=== PATIENT | female | born 1995 | race Caucasian/White ===

== ENCOUNTER → 2019-06-05 18:16 | Outpatient (ROUT) | payer OTHER, MEDICAID, SELFPAY ==
[2019-06-05 18:27] LABS: UR Morphine/Opiate cutoff 300 Negative (Negative); Ur Creatinine Normal (Normal); Ur Specific Gravity Normal (Normal); Urine Amphetamines Negative (Negative); Urine Barbiturates Negative (Negative); Urine Benzodiazepines Negative (Negative); Urine Cocaine Negative (Negative); Urine MDMA Negative (Negative); Urine Methadone Negative (Negative); Urine Methamphetamines Negative (Negative); Urine Oxycodone Negative (Negative); Urine Phencyclidine Negative (Negative); Urine Tetrahydrocannabinol Negative (Negative); Urine Tricyclic Antidepressant Negative (Negative); Urine pH Normal (Normal)
== END ==
PROVIDERS: Family Provider Family Medicine; PCP Family Medicine; Visit Provider Nurse Practitioner Obstetrics & Gynecology
DX: O09.30 Supervision of pregnancy with insufficient antenatal care, unspecified trimester (principal)
CPT/HCPCS: 80305; 87070; 87077; 87205

== ENCOUNTER → 2019-06-14 13:09 | Outpatient (ROUT) | payer OTHER, MEDICAID, SELFPAY ==
[2019-06-14 13:21] LABS: Ur Creatinine Normal (Normal); Ur Specific Gravity Normal (Normal); Urine pH Normal (Normal)
[2019-06-14 13:22] LABS: UR Morphine/Opiate cutoff 300 Negative (Negative); Urine Amphetamines Negative (Negative); Urine Barbiturates Negative (Negative); Urine Benzodiazepines Negative (Negative); Urine Cocaine Negative (Negative); Urine MDMA Negative (Negative); Urine Methadone Negative (Negative); Urine Methamphetamines Negative (Negative); Urine Oxycodone Negative (Negative); Urine Phencyclidine Negative (Negative); Urine Tetrahydrocannabinol Negative (Negative); Urine Tricyclic Antidepressant Negative (Negative)
[2019-06-14 15:56] LABS: Creatinine Urine Random 119.8 mg/dL; Protein (Total) Urine Random 21 mg/dL (0-12); Protein Creatinine Ratio Urine 0.17 GRAM/24H
== END ==
PROVIDERS: Family Provider Family Medicine; PCP Family Medicine; Visit Provider Nurse Practitioner Obstetrics & Gynecology
DX: O09.33 Supervision of pregnancy with insufficient antenatal care, third trimester (principal); O12.13 Gestational proteinuria, third trimester; Z3A.39 39 weeks gestation of pregnancy
CPT/HCPCS: 80305; 82570; 84156

== ENCOUNTER 2019-06-26 08:29 | Inpatient (IN) | payer OTHER, MEDICAID, SELFPAY ==
--- NOTE | 2019-06-26 08:42 | P.HPOB_ITS ---
OB HPI Date/Time Date of admission: 06/26/19 Date Patient Seen: 06/26/19 Time Patient Seen: 08:40 History of Present Condition Chief complaint: OBS : 1 Para: 0 Estimated Date of Delivery: 06/12/19 Estimated Gestational Age (weeks): 42 Narrative: Phyllis Lao is a 24 year old female with insufficient c are. Indications Indication for induction OB: post dates History of Present care: number of visits (5) Dating criteria: based on LMP only Ultrasounds: normal mid trimester US Obstetrical complications: none Medical complications: none Preadmission Labs Blood type: B (+) positive -: Antibody screen: negative, Cystic fibrosis screen: unknown, GBS status: negative, HBsAG: negative, HIV: negative and RPR/VDLR: negative -: Chlamydia screen: detected (treated 06/07/19) and Gonorrhea screen: not detected -: Rubella: immune and Varicella: unknown HCT: 34.2 HCAB: negative Narrative: No GDM screening done. Full PN panel @ 39 wks significant for + chlamydia which was treated. Post dates testing @ 41 wks KEITH-11.39cm, vertex. Evaluation Evaluation Baseline heart rate: 135 Variability: Moderate (11-25) monitor accelerations: Present monitor decelerations: Absent Contraction Frequency (minutes): 0 Uterine Contraction Intensity: Mild Category of Tracing: I Cervical dilation (cm): 4 Cervical effacement (%): 70 station: -3 Comments: Newton-6 PFSH Family History (Updated 06/26/19 @ 09:46 by Юлия Cherry CNM) Mother Cancer Social History (Updated 06/26/19 @ 09:47 by Юлия Cherry CNM) marital status: unmarried,single details: Lives with aunt lives independently: Yes caregiver/support person: No housing: house education level: high school occupational status: unemployed Smoking Status: Current every day smoker quit status: not considering quitting second hand exposure: Yes alcohol intake: former substance use type: does not use Meds Home Medications and Allergies Home Medications Medication Instructions Recorded Confirmed Type albuterol sulfate [Proventil HFA] 0 INH 1 #1 inh 01/05/13 Rx CLINDAMYCIN PHOS/BENZOYL PEROX 1 gel TOPICAL BID #1 tube 03/06/13 Rx (Benzaclin Gel) Allergies Allergy/AdvReac Type Severity Reaction Status Date / Time morphine Allergy Mild Verified 06/26/19 08:45 Penicillins Allergy Mild Hives Verified 06/26/19 08:45 Review of Systems Review of Systems ROS Unobtainable: All systems reviewed & are unremarkable except as noted in HPI and below Exam Vital Signs (past 8 hours): BP 116/76, HR104, T36C Temporal Uterus Location (Fundal Height): 39 Presentation: vertex Objective Labs Labs: CBC, T&S, HgbA1c and random glucose pending Assessment and Plan Assessment and Plan Assessment and Plan narrative: Post dates primipara IOL for post dates Insufficient care No indication for GBS prophylaxis GDM unknown, but unlikely Cat I FHR P: Admit, routine orders w/ misoprostil for cervical ripening to Newton >8, then pitocin. Labor support PRN. Epidural when requested. Reassess in 4-6 hours or sooner, PRN. Time Spent with Patient Total time spent with greater than 50% in coordination of care (as documented) at patient's floor/unit and/or counseling patient:: 15-24 minutes
[2019-06-26] MEDS: miSOPROStoL 25 MCG TABLET 50 MCG PO ×2 (09:12→12:35)
[2019-06-26 10:57] LABS: Ur Creatinine Normal (Normal); Ur Specific Gravity Normal (Normal)
[2019-06-26 10:58] LABS: UR Morphine/Opiate cutoff 300 Negative (Negative); Urine Amphetamines Negative (Negative); Urine Barbiturates Negative (Negative); Urine Benzodiazepines Negative (Negative); Urine Cocaine Negative (Negative); Urine MDMA Negative (Negative); Urine Methadone Negative (Negative); Urine Methamphetamines Negative (Negative); Urine Oxycodone Negative (Negative); Urine Phencyclidine Negative (Negative); Urine Tetrahydrocannabinol Negative (Negative); Urine Tricyclic Antidepressant Negative (Negative); Urine pH Normal (Normal)
[2019-06-26] MEDS: NICOTINE 7 MG PATCH TOP (11:23)
[2019-06-26 14:51] VITALS: BP 116/76
--- NOTE | 2019-06-26 15:39 | PM.OBPNLAB ---
Date/Time Date Patient Seen: 06/26/19 Time Patient Seen: 15:35 Pain Control Pain control: tolerating well Comments: denies pain VS: BP125/77, HR93, T35.9C Temporal Pelvic Exam Dilation (cm): 4 Effacement (%): 70 station: -3 Contractions Contractions on admission: irregular Monitor mode: External Pitocin rate (mU/min): 0 Contraction pattern: Irregular Contraction intensity: Mild Status status: Category l Heart Rate Baseline: 140 Monitor Accelerations: Present Monitor Decelerations: Absent Monitor Variability: Moderate Assessment and Plan Assessment: induction ongoing and other (Not in active labor) Comments: Minimal response w/ misoprostil x2 doses. Given 4cm dilation, recommend beginning pitocin for labor induction. Pt plans to shower, then consents to pitocin. Reassess in 4-6 hours or sooner, PRN. Labor support PRN. Epidural when requested.
[2019-06-26] MEDS: LACTATED RINGERS 1,000 ML 125 ML IV (16:45)
[2019-06-26 16:46] LABS: Add Manual Diff / Slide Review NO; Basophils Absolute Auto 100 /uL (0-100); Basophils Percent Auto 0.7 % (0-2); Eosinophils Absolute Auto 300 /uL (0-450); Eosinophils Percent Auto 2.1 % (2-4); Hematocrit 35.2 % (36-46); Hemoglobin 12.3 g/dL (12.0-16.0); Lymphocytes Absolute Auto 2900 /uL (1100-4500); Lymphocytes Percent Auto 18.2 % (25-40); Mean Corpuscular HGB Conc 34.9 % (30-36); Mean Corpuscular Hemoglobin 29.6 PG (26-34); Mean Corpuscular Volume 84.8 fL (80-100); Monocytes Absolute Auto 1500 /uL (0-900); Monocytes Percent Auto 9.5 % (3-14); Neutrophils Absolute Auto 11000 /uL (1500-7000); Neutrophils Percent Auto 69.5 % (50-75); Platelet Count 329 X10^3/uL (150-400); Red Blood Cell Count 4.15 X10^6/uL (4.0-5.2); Red Cell Distribution Width 13.8 % (11.6-14.8); White Blood Cell Count 15.9 X10^3/uL (4.5-11.0)
[2019-06-26 16:57] LABS: Hemoglobin A1C% w Est Avg Glu 5.2 % (4.0-6.0)
[2019-06-26] MEDS: OXYTOCIN PREMIX 30 UNIT/500 ML PLAST..BAG IV (17:03)
[2019-06-26 17:13] LABS: Glucose 105 mg/dL (70-100)
--- NOTE | 2019-06-26 20:34 | PM.OBPNLAB ---
Date/Time Date Patient Seen: 06/26/19 Time Patient Seen: 08:30 Pain Control Pain control: tolerating well Comments: VS: BP 136/81, HR94, T36.3C Temporal Pelvic Exam Dilation (cm): 4 Effacement (%): 70 station: -3 Comments: CE deferred as patient is not yet breathing through contractions Contractions Date/Time contractions began: 06/26/19 @ 1745 mild ctx started Pt now aware of tightening during contractions, no discomfort Monitor mode: External Pitocin rate (mU/min): 9 Contraction frequency (min): 3 Contraction duration (min): 50 Contraction pattern: Regular Contraction intensity: Mild Status status: Category l Heart Rate Baseline: 135 Monitor Accelerations: Present Monitor Decelerations: Absent Monitor Variability: Moderate Assessment and Plan Assessment: induction ongoing Plan: continuous present management Comments: Continue pitocin titration to adequate contraction pattern and intensity. Encouraged patient to get some sleep while ctx are mild. Labor support, PRN. Epidural when requested. Reassess in 4-6 hours or sooner, PRN.
[2019-06-27] MEDS: LACTATED RINGERS 1,000 ML 125 ML IV ×2 (00:05→13:29)
--- NOTE | 2019-06-27 01:54 | PM.OBPNLAB ---
Date/Time Date Patient Seen: 06/27/19 Time Patient Seen: 01:45 Pain Control Pain control: tolerating well Comments: Patient sleeping VS: BP133/82, HR85, T36.4 Pelvic Exam Dilation (cm): 4 Effacement (%): 70 station: -3 Comments: Exam deferred as patient is sleeping Contractions Contractions on admission: regular Monitor mode: External Pitocin rate (mU/min): 22 Contraction frequency (min): 3 Contraction duration (min): 50 Contraction pattern: Regular Contraction intensity: Mild Status status: Category l Heart Rate Baseline: 135 Monitor Accelerations: Present Monitor Decelerations: Absent Monitor Variability: Moderate Assessment and Plan Assessment: induction ongoing Comments: Stop pitocin and repeat misoprostil x1 dose. Will restart pitocin in am. Reassess in 5 hours or sooner, PRN
[2019-06-27] MEDS: miSOPROStoL 25 MCG TABLET 50 MCG PO (02:51)
--- NOTE | 2019-06-27 07:56 | PM.OBPNLAB ---
Date/Time Date Patient Seen: 06/27/19 Time Patient Seen: 07:45 Pain Control Pain control: tolerating well Comments: Patient slept well overnight and remains comfortable w/ irregular, mild contractions VS: BP109/69, HR82, T35.7C Temporal Pelvic Exam Dilation (cm): 4 Effacement (%): 70 station: -3 Comments: CE deferred Contractions Contractions on admission: irregular Monitor mode: External Pitocin rate (mU/min): 4 Contraction duration (min): 50 Contraction pattern: Regular Contraction intensity: Mild Status status: Category l Heart Rate Baseline: 135 Monitor Accelerations: Present Monitor Decelerations: Absent Monitor Variability: Moderate Assessment and Plan Assessment: induction ongoing Plan: begin patient augmentation Comments: Pitocin restarted at 0730. Continue pitocin titration to adequate contraction pattern. Labor support PRN. Epidural when requested. Reassess in 4-6 hours or sooner, PRN.
[2019-06-27] MEDS: NICOTINE 7 MG PATCH TOP (11:36)
--- NOTE | 2019-06-27 13:11 | PM.OBPNLAB ---
Date/Time Date Patient Seen: 06/27/19 Time Patient Seen: 12:20 Pain Control Pain control: tolerating well Pelvic Exam Dilation (cm): 4 Effacement (%): 70 station: -2 Amniotic membrane status: Ruptured Comments: AROM, copious clear fluid w/ near immediate increase in contraction intensity reported by patient Contractions Monitor mode: External Pitocin rate (mU/min): 18 Contraction frequency (min): 3 Contraction duration (min): 50 Contraction pattern: Regular Contraction intensity: Mild Status status: Category l Heart Rate Baseline: 140 Monitor Accelerations: Absent Monitor Decelerations: Absent Monitor Variability: Moderate Assessment and Plan Assessment: induction ongoing Plan: continuous present management Comments: Continue pitocin titration to adequate contraction pattern. Labor support PRN. Epidural when requested. Reassess in 4 hours or sooner, PRN.
--- NOTE | 2019-06-27 14:55 | P.PNOB_ITS ---
Date/Time Date Patient Seen: 06/27/19 Time Patient Seen: 14:50 Pain Control Pain control: tolerating well and epidural Comments: Comfortable after epidural placement VS: BP123/57, HR84, T36.7C Temporal Pt has had 2 elevated BPs Systolic >140 on 2 separate occasions, >4 hours apart. Preeclampsia labs ordered and veterinarian laboratory animal care had 2 failed attempts. CNM canceled order and will only send random urine for Pr:Cr atthis time Pelvic Exam Dilation (cm): 6 Effacement (%): 80 station: -2 Amniotic membrane status: Leaking Comments: clear Contractions Contractions on admission: regular Monitor mode: External Pitocin rate (mU/min): 18 Contraction frequency (min): 3 Contraction duration (min): 50 Contraction pattern: Regular Contraction intensity: Mild Status status: Category l Heart Rate Baseline: 145 Monitor Accelerations: Present Monitor Decelerations: Absent Monitor Variability: Moderate Assessment and Plan Assessment: active labor and induction ongoing Plan: continuous present management Comments: Notified OB back-up/ of pt status w/ ongoing IOL. If Pr:Cr <0.3, will hold repeat labs draw attempts. Encourage frequent position changes. Continue pitocin titration to adequate contraction pattern. Reassess in 4 hours or sooner, PRN.
[2019-06-27] MEDS: CALCIUM CARBONATE 500 MG TAB 1000 MG PO (16:02)
[2019-06-27] MEDS: LACTATED RINGERS 1,000 ML 100 ML IV (16:45)
[2019-06-27 17:06] LABS: Creatinine Urine Random 95.7 mg/dL; Protein (Total) Urine Random 29 mg/dL (0-12)
[2019-06-27] MEDS: ONDANSETRON 4 MG/2 ML INJ IV (18:55)
--- NOTE | 2019-06-27 18:57 | PM.OBPNLAB ---
Date/Time Date Patient Seen: 06/27/19 Time Patient Seen: 18:55 Pain Control Pain control: epidural Comments: VS: BP 112/59, HR93, T36.9C Temporal Last elevated BP was @ 1340, prior to epidural placement Pelvic Exam Dilation (cm): 6 Effacement (%): 90 station: -2 Amniotic membrane status: Leaking Contractions Monitor mode: External Pitocin rate (mU/min): 27 Contraction frequency (min): 2 Contraction duration (min): 60 Contraction pattern: Regular Contraction intensity: Mild Status status: Category l Heart Rate Baseline: 135 Monitor Accelerations: Present Monitor Decelerations: Absent Monitor Variability: Moderate Assessment and Plan Assessment: active labor and induction ongoing Comments: Given occasional BPs>140 systolic and Pr:Cr 0.3mg/dL, patient meets diagnostic criteria for preeclampsia. Notified OB Backup/.[place] of this change in dx and plan of care. Continue pitocin to max dose of 30mu/min. Encourage frequent position changes. Reassess in 4 hours or sooner, PRN.
--- NOTE | 2019-06-27 23:14 | PM.OBPNLAB ---
Date/Time Date Patient Seen: 06/27/19 Time Patient Seen: 11:10 Pain Control Pain control: epidural Comments: VS: BP 123/67, HR93, T36.2C Termporal Pelvic Exam Dilation (cm): 10 Effacement (%): 100 station: +1 Amniotic membrane status: Leaking Comments: fluid remains clear Contractions Date/Time contractions began: Pitocin was cut in half @ 2215 and then off @ 2228 for tachysystole that has since resolved Monitor mode: External Pitocin rate (mU/min): 0 Contraction frequency (min): 3 Contraction duration (min): 50 Contraction pattern: Regular Contraction intensity: Moderate Status status: Category l Heart Rate Baseline: 135 Monitor Accelerations: Present Monitor Decelerations: Early Monitor Variability: Moderate Assessment and Plan Assessment: active labor Plan: continuous present management Comments: No movement felt w/ trial push. Will labor down x 1-2 hours, then begin pushing. Will restart pitocin if contractions space.
[2019-06-28] MEDS: miSOPROStoL 200 MCG TABLET 400 MCG PO (01:30)
--- NOTE | 2019-06-28 01:41 | PM.OBPRVD ---
 Events: Postterm Labor > 42 Weeks and Labor Induction Labor & Delivery Delivery date: 06/28/19 Intrapartal events: None and Mild Preeclampsia Cervical ripening method: per misoprostal protocol Induction method: per pitocin protocol Delivery augmentation: rupture of membranes Delivery monitor: external FHT and external uterine Route of delivery: L&D Laceration Description: None Estimated blood loss (mL): 425 Anesthesia type: Epidural Narrative: After laboring down for 1 hour w/ Cat I FHR, pt pushed well with coaching and encouragement. NSVB of a viable baby girl in LAINE position w/ no NC and easy delivery of the shoulders. was placed on maternal abdomen for drying and stimulation. Spontaneous cry was heard within 20 seconds and resuscitation was not indicated. remaining pitocin was started at 300mL/hr for AMTSL. After cessation of pulsation, the cord was double clamped by CNM and cut by patient's aunt. Gentle cord traction led to spontaneous Schultze delivery of an apparently intact placenta, membranes and 3VC. Fundus massaged firm a pitocin was increased to a bolus rate. Bleeding repeatedly stopped w/ fundal massage correcting uterine atony and misoprostil 400mcg was given SL. Fundus stayed firm. Vagina and perineum inspected and intact. QBL 425mL. Baby 1: Infant gender: Female Presentation: vertex position: Right Occiput Anterior Placenta delivery description: Spontaneous cord vessel description: 3 Vessels score (1 min): 8 score (5 min): 9 Plan for aftercare: Routine PP orders.
[2019-06-28] MEDS: IBUPROFEN 600 MG TABLET PO ×2 (04:47→10:52)
[2019-06-28] MEDS: DOCUSATE 100 MG CAPSULE PO (10:52)
[2019-06-28] MEDS: PRENATAL VIT,CALC/IRON/FOLIC 1 TABLET 1 TAB PO (10:52)
--- NOTE | 2019-06-28 13:05 | PM.OBPN.1 ---
Subjective - OB Subjective Patient comments: no complaints [place] baby status: doing well feeding status: exclusively breast feeding Date Patient Seen: 06/28/19 Time Patient Seen: 12:30 Exam Vital Signs (past 8 hours): BP 122/70, HR88, RR16, T97.6F Narrative Exam Narrative: FF@ U and lochia light Objective Labs Result Diagrams: 06/26/19 16:30 06/26/19 16:30 Labs: Laboratory Results - last 24 hr 06/27/19 14:55 U Random Total Protein 29 H Urine Creatinine 95.7 Protein/Creatinin Ratio 0.30 Assessment & Plan Plan day: 1 plan OB: routine care Time Spent With Patient Time: Total time spent is greater than 50% in coordination of care (as documented) at patient's floor/unit and/or counseling patient: Time with patient: 15-24 minutes
--- NOTE | 2019-06-29 08:57 | P.DS_ITS ---
Discharge Providers Provider Date of admission: 06/26/19 08:29 Discharge Date: 06/29/19 Primary care physician: Mamie Magdaleno DO Consults: 06/28/19 13:50 Consult to BIOMEDICAL EQUIPMENT TECHNICIAN - [place] Routine Comment: Pending 06/29/19 01:36 Consult to Hand Stemmer Routine Comment: Pending Discharge provider: Юлия Cherry CNM Summary Hospital Course Date Patient Seen: 06/29/19 Time Patient Seen: 08:00 Hospital Course: S/P post dates IOL w/ preeclampsia without severe features diagnosed during labor. Voiding and ambulating independently. Denies pain and has not been taking PRN ibuprofen or Tylenol. Bleeding decreasing, no clots. Bresatfeeding well, but has chosen to supplement w/ formula until milk comes in. Does not desire smoking cessation. Awaiting , SIMON and social work consultation prior to discharge. Peripartum Data Infant Delivery Method: Natural Vaginal Laceration description: None complications: none [place] 1: Gender: Female Disposition of : home Discharge Diagnosis (1) Simple adnexal cyst greater than 5 cm in diameter in premenopausal patient: Start Date: 03/23/19 Status: Acute Problem Details: Recommend pelvic US @ 6 weeks PP to follow-up (2) Born by normal vaginal delivery: Start Date: 06/28/09 Status: Acute Status at Discharge Cognitive/behavioral status at discharge: oriented Functional status at discharge: independent ambulation Overall status at discharge: patient is progressing back to baseline Time Spent with Patient Time attestation: Total time spent providing and/or coordinating discharge services: Time spent: Greater than 30 minutes Time spent discussing smoking cessation with patient: 3 to 10 minutes Objective Labs Result Diagrams: 06/26/19 16:30 06/26/19 16:30 Exam Vital Signs (past 8 hours): BP 135/78, HR85, RR16, T97.6F Other: Fundus firm @ u-1, lochia light Psych Appearance: grossly normal Speech and Movement: speech and movement normal Affect: normal affect Attitude: cooperative Discharge Plan Discharge Plan Patient Disposition: Home Discharge orders & Medications Prescriptions: New docusate sodium [DOK] 100 mg Capsule 100 mg PO BID 14 Days Qty: 28 RF: 0 Prenatabs Rx 29 mg iron- 1 mg Tablet 1 tab PO DAILY 365 Days Qty: 100 RF: 4 acetaminophen 325 mg Tablet 650 mg PO Q6HR PRN (Reason: Pain, Mild (1-3)) 14 Days Qty: 60 RF: 0 ibuprofen 600 mg Tablet 600 mg PO Q6HR PRN (Reason: Pain, Mild (1-3)) 14 Days Qty: 60 RF: 0 Continued albuterol sulfate [Proventil HFA] 90 MCG/PUFF HFA aerosol inhaler 1 puff INH 1 RF: 0 Follow up/Referrals: Юлия Cherry CNM [Advanced Financial Aid Officer] - (Follow-up 07/01/19 @ 1100 for BP check Follow-up in 2 weeks and 6 weeks for routine appointments) Mamie Magdaleno DO [Primary Care Provider] - Diet/Activity/Treatments Diet: Diet as Tolerated and Regular Activity: pelvic rest x 6 weeks Skin/Wound/Dressing Care Report to your healthcare provider any signs of infection, such as:: chills, fever and increased pain Visit Report/Discharge Packet Instructions: DI for Depression Discharge Data Primary Care Provider: Mamie Magdaleno
[2019-06-29 09:29] VITALS: BP 142/72; PULSE 92; TEMP 36.9
--- NOTE | 2019-07-06 10:48 | CM.SWNOTE ---
Late Entry Received AUDIO/VISUAL MANAGER request on 06.28.19 from syrup maker Юлия Cherry to assess needs of this new mom, Phyllis, before DC w/her baby, home w/mom and mom's Aunt Sharon. According to the discussion w/Death Claim Clerk 06.29.19, Phyllis did not have any care, she has struggled w/homelessness in the last year but is currently living w/her aunt. Death Claim Clerk did not suspect drug use and Phyllis denied substance use, baby girl Edith doing very well. Death Claim Clerk wanting AUDIO/VISUAL MANAGER to review any additional resources available to help support mom, baby and family. FOB not present. No concerns warranting a CPS referral and mom/baby were being DC 06.29.19 Met w/Phyllis and her aunt Sharon 06.29.19 and had lengthy conversation. We reviewed the following items: -SIMON referral placed and mom/aunt appreciative -Mom has secured: housing w/aunt Sharon (until no longer needed), transportation through aunt, food/food stamps, clothing and baby needs, car seat and Mom and aunt familiar w/ WIC for formula and resource needs -Discussed PPD, signs and symptoms and resources for crisis response and stabilization; strongly encouraged mom to reach out to family and/or professionals if feeling hopeless, alone, angry, thoughts of SI/HI -Mom admits to smoking cigarettes but denies illicit drug use; Discussed smoking outside, never around baby and strongly encouraged Phyllis to consider decreasing and inevitably stopping smoking, discussed the high likelihood that children start to smoke when raised around family members that smoke -Phyllis and her Aunt familiar w/[employer] and [employer] [employer], especially for housing and family resources, and do not need contact info from this AUDIO/VISUAL MANAGER Discussed syrup maker's concern about no care and asked Phyllis to help this AUDIO/VISUAL MANAGER understand why she did not seek care? Phyllis explained she saw a physician at [facility] when she was found to be and this visit scared; she heard from this doc that her baby would be taken away d/t Phyllis's homelessness and lack of resources/support. Phyllis was too scared to return to another physician until closer to term. Updated Death Claim Clerk Юлия and RN. Phyllis, 24 yo, DC home w/ healthy baby girl Edith and her aunt Sharon 06.29.19, no further needs from this AUDIO/VISUAL MANAGER. Luz Johnson MSW
== END 2019-06-29 11:46 | disposition home or self-care (01) | DRG 560 ==
PROVIDERS: Admitting Provider Nurse Practitioner Obstetrics & Gynecology; Family Provider Family Medicine; PCP Family Medicine; Visit Provider Nurse Practitioner Obstetrics & Gynecology
DX: O48.0 Post-term pregnancy (principal); Z37.0 Single live birth; Z3A.42 42 weeks gestation of pregnancy; O99.334 Smoking (tobacco) complicating childbirth
CPT/HCPCS: 01967; 59050; 80305; 82570; 82947; 83036; 84156; 85025; 86850; 86900; 86901; 96360; G0379; J2405; J2590; S0191

== ENCOUNTER → 2022-11-27 14:36 | Outpatient (CLI) | payer OTHER, MEDICAID, SELFPAY ==
[2022-11-27 16:23] LABS: Urine N gonorrhoeae DETECTED
[2022-11-27 16:32] LABS: Urine Chlamydia NOT DETECTED
== END ==
PROVIDERS: Family Provider Family Medicine; PCP Family Medicine; Visit Provider Nurse Practitioner Family
DX: Z72.51 High risk heterosexual behavior (principal)
CPT/HCPCS: 81002; 81025; 87086; 87210; 87491; 87591

== ENCOUNTER 2023-07-01 07:16 | Emergency (ER) | payer OTHER, MEDICAID, SELFPAY ==
[2023-07-01 07:20] VITALS: PULSE 83; O2SAT 97
[2023-07-01 07:21] VITALS: BP 135/69; PULSE 88; O2SAT 98
[2023-07-01 07:22] VITALS: BP 138/65; BP 141/75; PULSE 81; PULSE 87; RESP 16; TEMP 36.7; O2SAT 99; BMI 39.6
[2023-07-01 07:23] VITALS: BP 146/69; PULSE 86; O2SAT 91
[2023-07-01 07:30] VITALS: PULSE 86; O2SAT 98
[2023-07-01 07:33] VITALS: PULSE 82
--- NOTE | 2023-07-01 07:46 | ED.EXTPRO ---
HPI - Extremity Problem General Chief complaint: Extremity Problem,Nontraumatic Stated complaint: swelling in both legs, twitching and burning Time Seen by Provider: 07/01/23 07:41 Source: patient Mode of arrival: Ambulatory History of Present Illness HPI Narrative: Patient 28-year-old female history of methamphetamine abuse presents today with muscle spasms and swelling in both her legs. She reports that she has not been able to sleep all night. She admits that she has injected methamphetamine into both of her thighs. She has been icing for the last 6 hours and taking ibuprofen without any relief she has been unable to sleep. She has not had fever or chills. She reports that she was sober for some time and recently relapsed Related Data Home Medications Medication Instructions Recorded Confirmed albuterol sulfate 90 mcg/actuation 1 puff INH 1 06/27/19 11/27/22 aerosol inhaler (Proventil HFA) Previous Rx's Medication Instructions Recorded vitamin 1 tab PO DAILY 365 days #100 tabs 06/29/19 no.76-iron,carbonyl 29 mg iron-folic acid 1 mg tablet (Prenatabs Rx) Allergies Allergy/AdvReac Type Severity Reaction Status Date / Time morphine Allergy Mild Verified 11/27/22 15:02 Penicillins Allergy Mild Hives Verified 11/27/22 15:02 diphenhydramine Allergy Verified 07/01/23 07:26 [From [facility]] Patient History Medical History (Updated 07/01/23 @ 08:01 by Ema Dailey DO) History of chlamydia infection 42 weeks gestation of Post-dates Hypermetropia (04/24/13) Family History (Updated 06/26/19 @ 09:46 by Юлия Ennis CNM) Mother Cancer Social History (Updated 06/26/19 @ 09:47 by Юлия Ennis CNM) marital status: unmarried,single details: Lives with aunt lives independently: Yes caregiver/support person: No housing: house education level: high school occupational status: unemployed Smoking Status: Current every day smoker quit status: not considering quitting second hand exposure: Yes alcohol intake: former substance use type: does not use Smoking Status: Current every day smoker Substance Use Type: methamphetamine Exam Initial Vital Signs Initial Vital Signs: Vital Signs Pulse Rate 83 07/01/23 07:20 Pulse Oximetry 97 07/01/23 07:20 GENERAL: Well-appearing, well-nourished and in no acute distress. CARDIOVASCULAR: peripheral pulses in tact, cap refill <2 sec RESPIRATORY: No respiratory distress, speaks in full sentences without difficulty EXTREMITIES: Normal range of motion, no clubbing or edema. Neurovascularly intact Bilateral distal pedal pulses intact no significant calf swelling or pain NEUROLOGICAL: Cranial nerves II through XII grossly intact. Normal gait and speech. SKIN: Multiple injection sites anterior thighs bruising no fluctuation no erythema no significant surrounding edema Course Vital Signs Vital signs: Vital Signs - 8 hr 07/01/23 07:20 07/01/23 07:21 07/01/23 07:21 Temperature Pulse Rate 83 88 Pulse Rate [Bilateral Dorsalis Pedis] Respiratory Rate Blood Pressure 135/69 Pulse Oximetry 97 98 Oxygen Delivery Method 07/01/23 07:22 07/01/23 07:22 07/01/23 07:22 Temperature 98.1 F Pulse Rate 81 87 Pulse Rate [Bilateral Dorsalis Pedis] Respiratory Rate 16 Blood Pressure 141/75 H 138/65 Pulse Oximetry 99 Oxygen Delivery Method Room Air 07/01/23 07:23 07/01/23 07:23 07/01/23 07:30 Temperature Pulse Rate 86 86 Pulse Rate [Bilateral Dorsalis Pedis] Respiratory Rate Blood Pressure 146/69 H Pulse Oximetry 91 98 Oxygen Delivery Method 07/01/23 07:33 Temperature Pulse Rate Pulse Rate [Bilateral Dorsalis Pedis] 82 Respiratory Rate Blood Pressure Pulse Oximetry Oxygen Delivery Method MDM - Extremity (Nontraumatic) MDM Narrative Medical decision making narrative: Patient 28-year-old female with recent methamphetamine injection presenting with muscle spasm. Is offered Flexeril and Tylenol but she declines. No evidence of abscess or cellulitis at this time. However she does have multiple contusions on anterior thighs that are not fluctuant or raised. At this time I do not see need for antibiotics. She is complaining that she feels like her legs are swollen low suspicion for DVT, she has good strong bilateral pedal pulses encourage her to ice and elevate. Discharge Plan Departure Patient Disposition: Home Clinical Impression: Muscle spasm Instructions: DI for Muscle Spasm Activity Restrictions/Additional Instructions: *You have been diagnosed with muscle spasm *What to do: At this time I recommend that you stop using methamphetamine. You are at risk for developing abscesses however no abscess is present. You were offered muscle relaxers to help her muscle spasms I do recommend ice 20-30 minutes at a time and elevation as much as possible *Continue to take medications as directed Motrin 600 mg every 6 hours if needed for pain Tylenol 650 mg every 4-6 hours if needed for pain *Follow up with your primary care provider in 2-3 days or call [phone] *Return to ER if you should have increasing redness swelling fever pain or any new, worsening or concerning symptoms Prescriptions: No Action albuterol sulfate [Proventil HFA] 90 MCG/PUFF HFA aerosol inhaler 1 puff INH 1 Prenatabs Rx 29 mg iron- 1 mg Tablet 1 tab PO DAILY 365 Days Qty: 100 4RF Referrals: Mamie Magdaleno DO [Primary Care Provider] - Stand Alone Forms: Patient Portal/API
== END 2023-07-01 08:09 | disposition home or self-care (01) ==
PROVIDERS: Emergency Provider Emergency Medicine; Family Provider Family Medicine; PCP Family Medicine
DX: M62.831 Muscle spasm of calf (principal)
CPT/HCPCS: 99281

== ENCOUNTER 2024-07-21 18:26 | Observation (INO) | payer SELFPAY ==
[2024-07-21 18:30] VITALS: BP 130/82; PULSE 81; RESP 16; TEMP 36.1; O2SAT 100; BMI 35.4
[2024-07-21 21:28] VITALS: PULSE 65; O2SAT 80
[2024-07-21 21:29] VITALS: PULSE 66; O2SAT 100
[2024-07-21 21:30] VITALS: BP 141/79; TEMP 36.4
[2024-07-21 21:33] VITALS: RESP 28
[2024-07-21 22:27] LABS: Alanine Aminotransferase 22 IU/L (<35); Albumin 4.4 g/dL (3.5-5.0); Albumin Globulin Ratio 1.2 (1.0-2.8); Alkaline Phosphatase 80 U/L (38-126); Aspartate Aminotransferase 29 IU/L (14-36); BUN Creatinine Ratio 20.5 (6-22); Bilirubin Total 0.4 mg/dL (0.2-1.3); Blood Urea Nitrogen 17 mg/dL (7-17); Calcium 9.2 mg/dL (8.4-10.2); Carbon Dioxide 24 mmol/L (22-32); Chloride 103 mmol/L (98-107); Estimated Glomerular Filt Rate > 60 mL/min (>60); Globulin 3.7 g/dL (1.7-4.1); Glucose 106 mg/dL (70-100); HEMOLYSIS < 15 (0-50); Lipase 82 U/L (23-300); Potassium 4.5 mmol/L (3.4-5.1); Sodium 135 mmol/L (137-145); Total Protein 8.1 g/dL (6.3-8.2)
[2024-07-21 22:29] LABS: Add Manual Diff / Slide Review NO; Basophils Absolute Auto 100 /uL (0-100); Basophils Percent Auto 0.7 % (0-2); Eosinophils Absolute Auto 100 /uL (0-450); Eosinophils Percent Auto 0.5 % (2-4); Hematocrit 38.9 % (36-46); Hemoglobin 12.9 g/dL (12.0-16.0); Lymphocytes Absolute Auto 1500 /uL (1100-4500); Mean Corpuscular HGB Conc 33.2 % (30-36); Mean Corpuscular Volume 84.1 fL (80-100); Monocytes Absolute Auto 800 /uL (0-900); Monocytes Percent Auto 5.1 % (3-14); Neutrophils Absolute Auto 12800 /uL (1500-7000); Neutrophils Percent Auto 83.7 % (50-75); Platelet Count 401 X10^3/uL (150-400); Red Blood Cell Count 4.62 X10^6/uL (4.0-5.2); White Blood Cell Count 15.3 X10^3/uL (4.5-11.0)
--- NOTE | 2024-07-21 22:33 | EKG_ITS ---
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
[2024-07-22] VITALS (11 sets, daily range): BP systolic 96–129; BP diastolic 55–73; PULSE 71–93; RESP 16–23; TEMP 36.1–36.9; O2SAT 96–98; BMI 35.4
--- NOTE | 2024-07-22 | PATH_ITS ---
[facility] Accession Number: [id number] No. of containers..02 Tissue . 01 Material submitted: . PART A: ovary - RIGHT OVARION CYST LINING PART B: gallbladder - GALLBLADDER AND CONTENTS . 01 Diagnosis: A. RIGHT OVARIAN CYST LINING: Benign cyst, favor endometrioma (disrupted cyst measurement 7.6 x 3.4 x 2.5 cm). . B. GALLBLADDER AND CONTENTS, CHOLECYSTECTOMY: Benign lymph node with reactive follicular hyperplasia (0/1). Chronic cholecystitis, cholesterolosis, and cholelithiasis. [facility] 07/28/2024 1053 Local . 01 Comment: Part A of this case was also reviewed by Dr. Andria Hidalgo, who agrees with the interpretation. . 01 Electronically signed: . Shante Nuñez MD, Pathologist NPI- [id number] . 01 Gross description: . A. Received in formalin with two patient identifiers and right ovarian cyst lining, is a bauer membranous soft tissue fragment consistent with disrupted cyst measuring 7.6 x 3.4 x 2.5 cm. One aspect is inked blue. The cyst is presumably unilocular with no contents identified. The wall is wrinkled with a uniform thickness of 0.1 cm. No areas of thickening or excrescences are identified. Certified Shorthand Reporter sections are submitted in A1-A7. B. Received in formalin with two patient identifiers and gallbladder and contents, is an intact gallbladder, 11.2 x 3.6 x 3.5 cm, with an unremarkable external surface. The cystic duct margin is inked blue and a bauer lymph node candidate is identified, 0.7 cm in greatest dimension. The lumen contains a brown roughened calculus, 2.6 cm in greatest dimension grossly obstructing the cystic duct and admixed with green mucoid bile. The mucosa is green and velvety with yellow areas of discoloration and no polyps or lesions identified. The garnica average 0.3 cm thick, and billing representative sections to include the cystic duct margin and full-thickness sections are submitted in B1. ([id number]) /MRV 07/25/2024 [facility]7 Local . 01 Microscopic: . An immunohistochemical stain for CD10 is performed to evaluate for block reactivity. The control stained with appropriate reactivity. . RESULTS: Block A7 CD10: Focally positive. . The focal presence of CD10 immunostaining supports an interpretation of endometriotic-type cyst. . * This test was developed and the performance characteristics were validated by [employer]. It has not been cleared or approved by the U.S. Food and Drug Administration. . 01 Pathologist provided ICD-10: N83.201, K80.60 . 01 CPT . 268098, 082935, A66639 Specimen Comment: A courtesy copy of this report has been sent to [facility] Performed at: [address] [address], [place], [place] [id number] MD Khoi Cristina MD Phone: [phone]
--- NOTE | 2024-07-22 | DI.US.S_ITS ---
PROCEDURE: US PELVIC COMPLETE INDICATIONS: 11CM PELVIC CYST ON CT FOLLOW UP TECHNIQUE: Real-time scanning was performed of the pelvic organs, with image documentation. Additional endovaginal scanning was necessary due to incomplete visualization of the adnexal and endometrial structures by transabdominal scanning. COMPARISON: [facility], US, US ABDOMEN LIMITED, 07/22/2024, 2:46. [facility], CT, CT ABDOMEN PELVIS W CON, 07/22/2024, 0:41. FINDINGS: Uterus: Uterus is anteverted and normal in size at 8.1 x 4.8 x 3.8 cm. The myometrium is mildly heterogeneous. The endometrium measures 6 mm combined thickness. The endometrial stripe is poorly defined. There is potential adenomyosis. Ovaries: The right ovary measures 2.8 x 1.1 x 0.9 cm, with a calculated ovarian volume of 1.5 cc. The left ovary measures 4.8 x 3.7 x 2.8 cm, with a calculated ovarian volume of 26 cc. The left ovary demonstrates a simple cyst measuring up to 2.8 cm. Normal appearing arterial waveforms are confirmed to each ovary. Less than 12 follicles can be seen in each ovary. Separate from the ovaries, there is a pelvic cyst seen inferiorly that measures 12.4 by 11 by 6.2 cm, with demonstrates a potential vascular septation. Other: A mild amount of free pelvic fluid is seen, which is considered to be within physiologic limits. Abnormal appearing vessels can be seen within the right adnexal region. IMPRESSION: There is an 11 cm cyst seen within the lower pelvis. In a patient of this age, this is almost certainly benign. If it would be clinically appropriate, a followup pelvic ultrasound could be considered in 6 weeks to assure resolution/ improvement. Negative for ovarian torsion. 2.8 cm left ovarian cyst, which is considered to be within physiologic limits. Potential abnormal right adnexal vessels. The appearance may simply represent slow venous flow. Attention should be paid on follow-up. Note: No significant discrepancy from the preliminary report. We strive to produce accurate, complete, and clear reports of imaging services. To assist us in improving patient care, this report was composed using standard report templates and voice recognition software. Therefore, it may contain abnormal punctuation, insertions and/or omissions. Occasional wrong-word or sound-alike substitutions may occur. Though we review the report and make efforts to correct it, we do recommend that the report be read carefully in proper context to recognize any text inaccuracies. Dictated by: Mauricio Bull M.D. on 07/22/2024 at 10:04 Approved by: Mauricio Bull M.D. on 07/22/2024 at 10:10
--- NOTE | 2024-07-22 | DI.US.S_ITS ---
PROCEDURE: US ABDOMEN LIMITED INDICATIONS: ABDOMEN PAIN - FOLLOW UP CHOLECYSTITIS/CHOLELITHIASIS ON CT TECHNIQUE: Real-time focused scanning was performed of the abdomen, with image documentation. COMPARISON: [facility], US, US PELVIC COMPLETE, 07/22/2024, 2:59. [facility], CT, CT ABDOMEN PELVIS W CON, 07/22/2024, 0:41. FINDINGS: The liver is normal in size and demonstrates no suspicious lesions. A nonmobile gallstone can be seen within the gallbladder neck measuring 2.3 cm. The gallbladder is enlarged and hydropic, measuring to 10.6 cm. The gallbladder wall is markedly thickened at nearly 13 mm. Gallbladder wall edema is seen and there is increased vascularity to the gallbladder wall. Pericholecystic edema is seen. The sonographic Gutierrez sign is not well assessed, secondary to pain medication. There is no biliary dilatation, the common bile duct measures 6 mm. No significant pancreatic abnormality is seen on these images. No significant free fluid can be seen. IMPRESSION: High suspicion for acute cholecystitis, with a nonmobile gallstone, an edematous hypervascular thickened gallbladder wall, and pericholecystic fluid. Note: No significant discrepancy from the preliminary report. Dictated by: Mauricio Bull M.D. on 07/22/2024 at 10:02 Approved by: Mauricio Bull M.D. on 07/22/2024 at 10:04
--- NOTE | 2024-07-22 00:09 | ED_ITS ---
HPI - Abdominal Pain General Chief Complaint: Abdominal Pain Stated Complaint: abd px Time Seen by Provider: 07/22/24 00:09 Source: patient, RN notes reviewed and old records reviewed Limitations: no limitations History of Present Illness HPI narrative: 29-year-old female with prior history of substance abuse currently sober presents with complaint of abdominal pain that she states started fairly abruptly tonight. She describes it as sort of all over has a localized a little bit more to the right side as time has gone by but states it still hurts sort of everywhere. No fevers or chills. She had nausea but no vomiting. States she was just lying in bed when it started. Denies any diarrhea or constipation no black or bloody stools. No vaginal bleeding or discharge. No dysuria urgency or frequency. States no flank pain appreciated. Patient has not had similar pain in the past. Denies any chest pain or shortness of breath. Patient states no daily prescription medications, patient does have Implanon or Nexplanon in her arm. Denies any prior surgeries. Does use tobacco regularly, occasional alcohol has a history of substance abuse with methamphetamines but states she has been sober for awhile. Related Data Home Medications Medication Instructions Recorded Confirmed albuterol sulfate 90 mcg/actuation 1 puff INH 1 06/27/19 07/22/24 aerosol inhaler (Proventil HFA) Allergies Allergy/AdvReac Type Severity Reaction Status Date / Time morphine Allergy Mild Verified 11/27/22 15:02 Penicillins Allergy Mild Hives Verified 11/27/22 15:02 diphenhydramine Allergy Verified 07/01/23 07:26 [From Benadryl] Review of Systems Review of Systems ROS Unobtainable: All systems reviewed & are unremarkable except as noted in HPI and below Patient History Medical History History of chlamydia infection 42 weeks gestation of Post-dates Hypermetropia (04/24/13) Family History Mother Cancer Social History marital status: unmarried,single details: Lives with aunt lives independently: Yes caregiver/support person: No housing: house education level: high school occupational status: unemployed Smoking Status: Current every day smoker quit status: not considering quitting second hand exposure: Yes alcohol intake: former substance use type: does not use Smoking Status: Current every day smoker Exam Narrative Exam Narrative: GENERAL: Alert and oriented x three, female in mild distress HEENT: Head normocephalic, atraumatic, EOMI, pupils reactive, face symmetric, moist mucous membranes NECK: Supple, full range of motion CARDIOVASCULAR: Regular rate and rhythm without murmurs, rubs or gallops. RESPIRATORY: Breath sounds equal bilaterally, no wheezes rales or rhonchi. ABDOMEN: Soft, patient has moderate generalized tenderness throughout a little bit more in the right upper and lower but patient is still quite tender in the left. Normoactive bowel sounds all 4 quadrants. No guarding or rebound, rigidity, no mass : No CVA tenderness EXTREMITIES: Normal range of motion, no clubbing or edema. Neurovascularly intact NEUROLOGICAL: Cranial nerves II through XII grossly intact. Moving all extremities SKIN: Warm, dry, no petechiae, no rashes or lesions. Initial Vital Signs Initial Vital Signs: Vital Signs Temperature 97.0 F L 07/21/24 18:30 Pulse Rate 81 07/21/24 18:30 Respiratory Rate 16 07/21/24 18:30 Blood Pressure 130/82 07/21/24 18:30 Pulse Oximetry 100 07/21/24 18:30 Oxygen Delivery Method Room Air 07/21/24 18:30 Course Orders Ordered: ED Orders 07/21/24 22:05 Complete Blood Count AUTO DIFF Stat Comprehensive Metabolic Panel Stat Lipase Stat 07/21/24 22:10 EKG-12 Lead Stat 07/22/24 US abdomen complete Stat US transvaginal Stat 07/22/24 00:10 Test Serum,Qual Stat 07/22/24 00:37 CT abdomen pelvis w con Stat 07/22/24 01:47 tox [Urine Drug Screen, Rapid] Stat Acetaminophen (Acetaminophen 325 Mg Tablet) 650 mg PO Q6H ALLEN Heparin Sodium (Porcine) (Heparin 5,000 Unit/Ml Vial) 5,000 unit SUBCUT BID ALLEN Hydromorphone HCl (Hydromorphone 0.5 Mg Inj) 0.5 mg IV Q2H PRN PRN Reason: Pain, Severe (7-10) Lactated Ringer's (Lactated Ringers) 1,000 mls @ 100 mls/hr IV CONT ALLEN Piperacillin Sod/Tazobactam (Sod 4.5 gm/ Sodium Chloride) 100 mls @ 200 mls/hr IV Q8HR ALLEN Ibuprofen (Ibuprofen 400 Mg Tablet) 400 mg PO Q4H ALLEN Magnesium Hydroxide (Magnesium Hydroxide 30 Ml Udc) 30 ml PO DAILY ALLEN Naloxone HCl (Naloxone 0.4 Mg/Ml Vial) 0.2 mg IV Q2MIN PRN PRN Reason: Opiate Reversal Non-Formulary Medication (Albuterol Sulfate [Proventil Hfa]) 1 puff INH 1 ALLEN Oxycodone HCl (Oxycodone Ir 5 Mg Tablet) 5 mg PO Q3H PRN PRN Reason: Pain, Moderate (4-6) Pantoprazole Sodium (Pantoprazole Dr 20 Mg Tablet) 20 mg PO 0600 ALLEN Discontinued Medications Sodium Chloride (Normal Saline 0.9%) 1,000 mls @ 1,000 mls/hr IV BOLUS ONE Stop: 07/22/24 01:36 Last Admin: 07/22/24 00:49 Dose: 1,000 mls/hr Documented By: JOSSELINE Piperacillin Sod/Tazobactam (Sod 4.5 gm/ Sodium Chloride) 100 mls @ 200 mls/hr IV NOW ONE Stop: 07/22/24 01:31 Last Admin: 07/22/24 02:16 Dose: 200 mls/hr Documented By: Ketorolac Tromethamine (Ketorolac 30 Mg/Ml Vial) 15 mg IV NOW ONE Stop: 07/22/24 00:38 Last Admin: 07/22/24 00:47 Dose: 15 mg Documented By: JOSSELINE Ondansetron HCl (Ondansetron 4 Mg/2 Ml Inj) 4 mg IV NOW PRN PRN Reason: Nausea And Vomiting Ondansetron HCl (Ondansetron 4 Mg Odt) 4 mg PO NOW PRN PRN Reason: Nausea And Vomiting Vital Signs Vital signs: Vital Signs - 8 hr 07/21/24 21:28 07/21/24 21:29 07/21/24 21:30 Temperature 97.6 F Pulse Rate 65 66 Respiratory Rate Blood Pressure 141/79 H Pulse Oximetry 80 L 100 07/21/24 21:33 Temperature Pulse Rate Respiratory Rate 28 H Blood Pressure Pulse Oximetry MDM - Abdominal Pain Lab Data 07/21/24 22:05 07/21/24 22:05 Labs: Lab Results 07/21/24 Range/Units 22:05 WBC 15.3 H (4.5-11.0) X10^3/uL RBC 4.62 (4.0-5.2) X10^6/uL Hgb 12.9 (12.0-16.0) g/dL Hct 38.9 (36-46) % MCV 84.1 (80-100) fL MCH 28.0 (26-34) PG MCHC 33.2 (30-36) % RDW 14.0 (11.6-14.8) % Plt Count 401 H (150-400) X10^3/uL Neut % (Auto) 83.7 H (50-75) % Lymph % (Auto) 10.0 L (25-40) % [place] % (Auto) 5.1 (3-14) % Eos % (Auto) 0.5 L (2-4) % Baso % (Auto) 0.7 (0-2) % Neut # (Auto) 67120 H (8167-1698) /uL Lymph # (Auto) 1500 (1095-8097) /uL [place] # (Auto) 800 (0-900) /uL Eos # (Auto) 100 (0-450) /uL Baso # (Auto) 100 (0-100) /uL Sodium 135 L (137-145) mmol/L Potassium 4.5 (3.4-5.1) mmol/L Chloride 103 (98-107) mmol/L Carbon Dioxide 24 (22-32) mmol/L BUN 17 (7-17) mg/dL Creatinine 0.83 (0.52-1.04) mg/dL Estimated GFR > 60 (>60) mL/min BUN/Creatinine Ratio 20.5 (6-22) Glucose 106 H (70-100) mg/dL Calcium 9.2 (8.4-10.2) mg/dL Total Bilirubin 0.4 (0.2-1.3) mg/dL AST 29 (14-36) IU/L ALT 22 (<35) IU/L Alkaline Phosphatase 80 (38-126) U/L Total Protein 8.1 (6.3-8.2) g/dL Albumin 4.4 (3.5-5.0) g/dL Globulin 3.7 (1.7-4.1) g/dL Albumin/Globulin Ratio 1.2 (1.0-2.8) Lipase 82 (23-300) U/L Serum , Qual Negative (Negative) Point of care testing: Urine Dip Bedside Urine Glucose Negative Bedside Urine Bilirubin - Negative Bedside Urine Ketone - Negative Urine Specific [place] 1.015 Bedside Urine Occult Blood + Bedside Urine pH 7.0 Bedside Urine Protein - Negative Bedside Urine Urobilinogen - Negative Bedside Urine Nitrite - Negative Bedside Urine Leukocytes +++ [address] scan - abdomen/pelvis: Radiologist's Impression: Phyllis Lao?(Phyllis)??29??F??1995 ? Allergy/Adv: morphine, Penicillins, diphenhydramine (More??) Close Abdomen/Pelvis CT (Signed) Juarez Haro - 07/22/24 [place] [address] CT Scan Report Signed Patient: Phyllis Lao MR#: [id number] : 1995 Acct:[id number] Age/Sex: 29 / F Date of Service: 07/22/24 Loc: ED Accession Number: [id number] Procedure: CT abdomen pelvis w con Ordering Provider: Florinda Mcdonald D.O. PROCEDURE: CT ABDOMEN PELVIS W CON INDICATIONS: abdominal pain generalized, R> L TECHNIQUE: After the administration of intravenous contrast, axial sections acquired from the lung bases to the pubic symphysis. Coronal and sagittal reformats were performed. For radiation dose reduction, the following was used: automated exposure control, adjustment of mA and/or kV according to patient size. COMPARISON: None. FINDINGS: Image quality: Diagnostic Lower chest: Basal atelectasis in the lung bases. Normal heart size. Liver: Unremarkable Gallbladder and biliary system: Distended gallbladder with pericholecystic edema. There is a gallstone appearing lodged in the neck. No ductal dilation Pancreas: No ductal dilation Spleen: Nonenlarged Adrenals: No discrete nodules Kidneys: Nonobstructing 5 mm right lower pole calculus. No hydronephrosis. No solid renal mass Vessels and lymph nodes: The main portal vein appears patent. No abdominal aortic aneurysm. No pathologic lymphadenopathy by size criteria. Bowel and peritoneum: No evidence of small bowel obstruction. No pathologic ascites. Nonspecific mild wall thickening in the distal colon and rectum. The appendix is nondilated. Body wall: Unremarkable Pelvis: Bladder is unremarkable. Uterus is unremarkable on limited CT evaluation. Probable 3.1 cm left ovarian cyst. There is a large adnexal 2nd cyst sitting on top of the bladder measuring up to 11 cm, possibly arising from the right ovary Bones: Mild sacroiliac degenerative changes. No aggressive appearing osseous finding IMPRESSION: Pericholecystic edema, gallbladder distention, with gallstone lodged at the neck suspicious for cholecystitis. No biliary ductal dilation. Questionable wall thickening of the distal colon and rectum representing proctocolitis versus artifact of under distention. Ovarian cysts, measuring up to 11 cm sitting on top of the bladder, likely arising from the right ovary. No nodular enhancing component on CT. Consider ultrasound however to assess for ovarian flows. Consider outpatient gynecologic protocol pelvic MRI for surveillance depending on ultrasound results. Dictated by: Juarez Haro M.D. on 07/22/2024 at 1:04 Approved by: Juarez Haro M.D. on 07/22/2024 at 1:09 [facility] Narrative Medical decision making narrative: 29-year-old female dirty pain is right upper quadrant on examination but has generalized tenderness as well. White count of 15.3 hemoglobin of 12.9 platelets of 401. Chemistry shows sodium 135 electrolytes are otherwise normal creatinine 0.83 glucose is 106 with negative LFTs and lipase 82. Urine CT abdomen pelvis, shows pericholecystic edema, gallbladder distention gallstone lodged index suspicious cholecystitis no biliary ductal dilation questionable wall thickening distal colon and rectum presenting proctocolitis versus artifact. Ovarian cyst measuring up to 11 cm sitting on top of the bladder likely arising from the right ovary no nodular enhancing component consider ultrasound to assess for ovarian flows. Consider outpatient gynecologic protocol per MRI for surveillance pending on ultrasound result. Patient received fluids and Toradol. She feels much improved. Spoke with Dr. Toledo general surgery has been on his service, did discuss patient has a large ovarian cyst likely from the right ovary sitting on top of the bladder is potential source for pain but also has appears to be cholecystitis with gallstone lodged this is her main source. On rechecked updated patient she was agreeable to surgery, patient and I did discuss she has a very large ovarian cyst is high-risk for torsion. [address] Bishop, [employer] suspicion for torsion in his lower but patient was high-risk he will reach out to Dr. Toledo and may accompany for surgery tomorrow. Discharge Plan Departure Patient Disposition: Admitted As Inpatient Clinical Impression: Acute cholecystitis, Cholelithiasis, Ovarian cyst Admit Date/Time: 07/22/24 01:55 Admit Provider: Alexis Toledo
--- NOTE | 2024-07-22 00:37 | DI.CT.S_ITS ---
PROCEDURE: CT ABDOMEN PELVIS W CON INDICATIONS: abdominal pain generalized, R> L TECHNIQUE: After the administration of intravenous contrast, axial sections acquired from the lung bases to the pubic symphysis. Coronal and sagittal reformats were performed. For radiation dose reduction, the following was used: automated exposure control, adjustment of mA and/or kV according to patient size. COMPARISON: None. FINDINGS: Image quality: Diagnostic Lower chest: Basal atelectasis in the lung bases. Normal heart size. Liver: Unremarkable Gallbladder and biliary system: Distended gallbladder with pericholecystic edema. There is a gallstone appearing lodged in the neck. No ductal dilation Pancreas: No ductal dilation Spleen: Nonenlarged Adrenals: No discrete nodules Kidneys: Nonobstructing 5 mm right lower pole calculus. No hydronephrosis. No solid renal mass Vessels and lymph nodes: The main portal vein appears patent. No abdominal aortic aneurysm. No pathologic lymphadenopathy by size criteria. Bowel and peritoneum: No evidence of small bowel obstruction. No pathologic ascites. Nonspecific mild wall thickening in the distal colon and rectum. The appendix is nondilated. Body wall: Unremarkable Pelvis: Bladder is unremarkable. Uterus is unremarkable on limited CT evaluation. Probable 3.1 cm left ovarian cyst. There is a large adnexal 2nd cyst sitting on top of the bladder measuring up to 11 cm, possibly arising from the right ovary Bones: Mild sacroiliac degenerative changes. No aggressive appearing osseous finding IMPRESSION: Pericholecystic edema, gallbladder distention, with gallstone lodged at the neck suspicious for cholecystitis. No biliary ductal dilation. Questionable wall thickening of the distal colon and rectum representing proctocolitis versus artifact of under distention. Ovarian cysts, measuring up to 11 cm sitting on top of the bladder, likely arising from the right ovary. No nodular enhancing component on CT. Consider ultrasound however to assess for ovarian flows. Consider outpatient gynecologic protocol pelvic MRI for surveillance depending on ultrasound results. Dictated by: Juarez Haro M.D. on 07/22/2024 at 1:04 Approved by: Juarez Haro M.D. on 07/22/2024 at 1:09
[2024-07-22 00:46] LABS: Pregnancy Test Serum,Qual Negative (Negative)
[2024-07-22] MEDS: KETOROLAC 30 MG/ML VIAL 15 MG IV (00:47)
[2024-07-22] MEDS: SODIUM CHLORIDE 0.9% 1,000 ML 1000 ML IV (00:49)
[2024-07-22] MEDS: PIPERACILLIN/TAZO 4.5 GM in SODIUM CHLORIDE 0.9% 100 ML IV (02:16)
[2024-07-22] MEDS: LACTATED RINGERS 1,000 ML 100 ML IV (04:09)
[2024-07-22] MEDS: PIPERACILLIN/TAZO 3.375 GM in SODIUM CHLORIDE 0.9% 100 ML IV (06:04)
--- NOTE | 2024-07-22 08:46 | P.HP_ITS ---
History of Present Illness History of Present Illness Date Patient Seen: 07/22/24 Time Patient Seen: 08:46 Chief complaint: abd px Narrative: 29-year-old white female presents with 1 day of right upper quadrant pain. CT scan performed in the ER suspicious for acute cholecystitis. [place] [address], normal liver function tests. She also had a 10 cm ovarian cyst on the CT scan. We subsequently performed ultrasound which confirmed the acute cholecystitis, but show this ovarian cyst seemed to be a simple cyst without torsion and she does not have lower abdominal pain. Urine test is negative. She has a 5-year-old child at home. She admits to methamphetamine use, last taken 2 days ago. She denies any other substances. Urine toxicology was ordered on admission, but has not been collected yet. [facility] Medical History History of chlamydia infection 42 weeks gestation of Post-dates Hypermetropia (04/24/13) Family History Mother Cancer Social History marital status: unmarried,single details: Lives with aunt household members: friend(s) lives independently: Yes caregiver/support person: No housing: house education level: high school occupational status: unemployed Smoking Status: Current every day smoker quit status: not considering quitting second hand exposure: Yes alcohol intake: former substance use type: does not use Meds Home Medications and Allergies Home Medications Medication Instructions Recorded Confirmed Type albuterol sulfate 90 mcg/actuation 1 puff INH 1 06/27/19 07/22/24 History aerosol inhaler (Proventil HFA) Allergies Allergy/AdvReac Type Severity Reaction Status Date / Time morphine Allergy Mild Verified 11/27/22 15:02 Penicillins Allergy Mild Hives Verified 11/27/22 15:02 diphenhydramine Allergy Verified 07/01/23 07:26 [From Benadryl] Review of Systems Review of Systems ROS: Yes All systems reviewed with the patient and are negative except as otherwise documented Exam Vital Signs (past 8 hours): - 07/22/24 02:20 07/22/24 06:14 Temperature 98.5 F 98.0 F Pulse Rate 84 84 Respiratory Rate 16 16 Blood Pressure 129/64 112/71 Pulse Oximetry 98 98 Oxygen Flow Rate 0 0 Oxygen Delivery Method Room Air Oxygen Flow Rate 0 Narrative Exam Narrative: Gen: NAD, sitting comfortably in bed, somnolent HEENT: Sclera are anicteric, head is normocephalic and atraumatic, trachea is midline. CV: RRR, no JVD Resp: clear to auscultation bilaterally, equal chest wall movement bilaterally Abd: soft, tender in right upper quadrant, normoactive bowel sounds Ext: no edema, full range of motion Neuro: Cranial nerves II-XII grossly intact, no focal deficits Skin: No erythema or ecchymosis Objective Imaging CT scan - abdomen: My impression: CT scan of the abdomen independently reviewed by me shows concern for acute cholecystitis and an ovarian cyst US - abdomen: My impression: Gallbladder wall thickening consistent with acute cholecystitis, no concern for ovarian torsion Labs 07/21/24 22:05 07/21/24 22:05 Labs: Laboratory Results - last 24 hr 07/21/24 22:05 WBC 15.3 H RBC 4.62 Hgb 12.9 Hct 38.9 MCV 84.1 MCH 28.0 MCHC 33.2 RDW 14.0 Plt Count 401 H Neut % (Auto) 83.7 H Lymph % (Auto) 10.0 L [place] % (Auto) 5.1 Eos % (Auto) 0.5 L Baso % (Auto) 0.7 Neut # (Auto) 61518 H Lymph # (Auto) 1500 [place] # (Auto) 800 Eos # (Auto) 100 Baso # (Auto) 100 Sodium 135 L Potassium 4.5 Chloride 103 Carbon Dioxide 24 BUN 17 Creatinine 0.83 Estimated GFR > 60 BUN/Creatinine Ratio 20.5 Glucose 106 H Calcium 9.2 Total Bilirubin 0.4 AST 29 ALT 22 Alkaline Phosphatase 80 Total Protein 8.1 Albumin 4.4 Globulin 3.7 Albumin/Globulin Ratio 1.2 Lipase 82 Serum , Qual Negative Assessment & Plan Assessment and plan (1) Acute cholecystitis: Status: Acute (2) Simple adnexal cyst greater than 5 cm in diameter in premenopausal patient: Problem details: Recommend pelvic US @ 6 weeks PP to follow-up Status: Acute Assessment & Plan narrative: Risks, benefits, alternatives of laparoscopic cholecystectomy with cholangiography were explained to the patient. Risks of nonoperative management including jaundice, pancreatitis and worsening cholecystitis were all explained to the patient. Risks of surgery include bleeding, infection, bile leaks, retained stones, need for ERCP, incisional hernia, injury to related structures, failure to relieve symptoms and worsening reflux were all explained to the patient. Patient agrees to proceed with laparoscopic cholecystectomy with cholangiography. May aspirate were fenestrate the cyst during lap choly. Time-Based Coding :: [TOTAL MINUTES] spent with patient and on the chart (including review of chart, obtaining history, exam, reviewing outside data, placing orders, documenting exam and treatment plan, and counseling patient) on [DATE]. PROFEE Accounts Payable Supervisor Document charge(s): Yes Charge Codes Initial inpatient/observation care: [id number] (-[id number])
--- NOTE | 2024-07-22 09:16 | CM.DANOTE ---
Addendum entered by EMILE Montanez 07/22/24 12:09: ADD: Pt remains off the floor in OR from Lap Maira and cyst was drained and fluids sent for pathology. Surgeon anticipates d/c today and SW to attempt to determine if pt has PCP established and if pt really has straight Medicaid. Pt had support person bedside in room right prior to surgery. Plan: SW waiting for pt to return to the floor to confirm if stable for d/c home later today and determine any d/c needs. BF Original Note: Prema mast is a 29 yo female who was admitted OBS Status on 07/22/24 for Abd pain. Pt has Medicaid for insurance and likely no established PCP. EMR was reviewed. Per Surgeon, pt with hx of MARIA TERESA of meth but has been sober and likely cholecystitis and imaging shows cyst near ovary/bladder, plan is surgical intervention likely today. SW attempted to meet bedside with pt for assessment but pt and her friend sleeping soundly in room and unable to awaken. SW will follow for bedside assessment later this morning. EMILE Montanez Discharge Planning/Care Management CM Discharge Assessment Start: 07/22/24 09:14 Freq: Status: Active Protocol: Document 07/22/24 09:14 BF (Rec: 07/22/24 09:16 BF [id number]) Discharge Planning Assessment Assigned Crm Coordinator EMILE Grullon DPOA/Assigned Designee Name none Advance Directives? No Advance Directives on File No History Provided By Patient,Medical Record Has Patient been admitted in last 30 No days? Prior Living Arrangements House Household Members friend(s) Type of transporation used prior to Drives own vehicle admit Independent with ADL's Yes Is patient alert and oriented? Yes Barriers to Discharge No Discharge Plan Home Transportation Arrangement friend bedside and can transport at d/c Referrals Initiated None needed Additional Comment Pending progress post surg Whiteboard Updated in Patient Room with Yes name and ext. # of Crm Coordinator Review Status In Process Please Provide Date Initial DC 07/22/24 Assessment Was Performed Next Review Type Continued Stay Review
[2024-07-22] MEDS: LACTATED RINGERS 1,000 ML 42 ML IV ×2 (09:54→11:44)
[2024-07-22] MEDS: ACETAMINOPHEN IV 1,000 MG/100 ML VIAL 400 MG IV (10:10)
[2024-07-22 10:15] LABS: Ur Creatinine Normal (Normal); Ur Specific Gravity Normal (Normal); Urine Amphetamines Positive (Negative); Urine Cocaine Negative (Negative); Urine Opiates Negative (Negative); Urine THC Negative (Negative); Urine pH Normal (Normal)
[2024-07-22 10:16] LABS: Urine Barbiturates Negative (Negative); Urine Benzodiazepines Negative (Negative); Urine MDMA Negative (Negative); Urine Methadone Negative (Negative); Urine Methamphetamines Positive (Negative); Urine Oxycodone Negative (Negative); Urine Phencyclidine Negative (Negative); Urine Tricyclic Antidepressant Negative (Negative)
--- NOTE | 2024-07-22 10:23 | SUR.OPER ---
Supine on padded OR bed, head on pillow, safety belt at thigh, jacqueline arms secured on padded arm boards <90 degrees abduction. Legs uncrossed. Padded footboard in place. Tape over blanket to secure lower legs.
--- NOTE | 2024-07-22 10:32 | PATH_ITS ---
Note [facility] Accession Number: [id number] TESTS RESULT FLAG UNITS REF RANGE LAB Clinician Provided Cytology Information No. of containers..01 Other (Miscellaneous) Source: RIGHT OVARIAN CYST DIAGNOSIS: RIGHT OVARIAN CYST NEGATIVE FOR MALIGNANT CELLS. THIS INTERPRETATION INCLUDES EVALUATION OF A CELL BLOCK. Pathologist ICD10: 01 N83.201 Signed out by: Shante Nuñez MD, Pathologist NPI- [id number] Performed by: Florentino Monsalve, Veterinary Medicine Teacher ([facility]) Gross description: 17 CC, YELLOW, HAZY RECEIVED: FRESH IN 20 ML SYRINGE.VO /VDU 07/24/2024 1029 Local FLAG LEGEND: L-Low Normal,H-High Normal,LL-Alert Low,HH-Alert High <-Panic Low,>-Panic High,A-Abnormal,AA-Critical Abnormal Performed at: 01 =Z [facility] [address], [place] [address] Khoi Cristina MD, Performed at: 01 [facility] [address], [place], [place] [id number] MD Khoi Cristina MD Phone: [phone]
--- NOTE | 2024-07-22 10:34 | SUR.OPER ---
Right Ovarion cyst fluid drained and specimen sent for cytology
[2024-07-22] MEDS: BUPIVACAINE 0.5% W/ EPI (PF) 30 ML VIAL INJ (10:42)
[2024-07-22] MEDS: BUPIVACAINE 0.5% W/ EPI (PF) 10 ML VIAL INJ (11:18)
--- NOTE | 2024-07-22 11:54 | PM.OP.1 ---
Operative Date/Time/Diagnoses Date of procedure: 07/22/24 Time of procedure: 11:54 Pre-op diagnosis: 1. Acute cholecystitis 2. Right ovarian cyst Post-op diagnosis: same Procedure & Clinicians Procedure: 1. Laparoscopic cholecystectomy 2. Aspiration of pelvic cyst originating from right ovary and tube Same procedure as scheduled: Yes Indications: Abdominal pain, ultrasound consistent with acute cholecystitis Surgeon: Alexis Govea Yes if Unassisted: Yes Anesthesia Type: General Operative Notes Findings: Large stone in the neck of the gallbladder Greater than 10 cm right adnexal cyst Closure Type: primary Specimen(s): other (1. Cyst fluid for cytology 2. Right ovarian cyst biopsy 3. Gallbladder and contents) Estimated Blood Loss (mL): 15 Procedure in detail: Consent was obtained. Patient was brought into the operating room suite. Patient was placed in the supine position with the arms out. General anesthesia was induced. Time-out was performed. The abdomen was prepped and draped in the usual fashion. Total of 30 mL of 0.5% Marcaine were infiltrated in all trocar sites. 5 mm optical trocar was placed in the left upper quadrant. Pneumoperitoneum was achieved. The abdomen was inspected. Abnormalities noted included adhesions to the gallbladder. There was a large pelvic cyst in the pelvis. 11 mm trocar placed in the umbilicus. Two additional 5 mm trocars were placed in the right upper quadrant. The cyst was aspirated to allow for more operating space. The fluid was sent for cytology. Bovie electrocautery was used to open a fenestration in the cyst lining and this was sent for permanent. The gallbladder was grasped, retracted laterally and cephalad. The medial and lateral attachments of the gallbladder were opened revealing a critical view of the single cystic duct and single cystic artery. The artery was doubly clipped and divided. The duct was clipped at the junction of the infundibulum. Three clips were then applied to the cystic duct stump. The duct was divided. There was a long narrow posterior branch of the cystic artery that followed along the liver edge. This was clipped and divided. Bovie electrocautery was used to remove the gallbladder from the liver bed. Hemostasis was achieved. The gallbladder and ovarian cyst lining were placed in an endo-pouch and brought out through the umbilical trocar. The umbilical trocar was closed with an 0 Vicryl on a Bello-Mason suture Passer. Pneumoperitoneum was relieved. Skin was closed with 4-0 Monocryl and Dermabond. Patient tolerated procedure well was transferred to PACU in stable condition for anticipated same-day discharge. Complications: none Post-operative Condition: stable Disposition: PACU Plan for aftercare: home. Patient desires narcotic-free recovery.
[2024-07-22] MEDS: ACETAMINOPHEN 325 MG TABLET 650 MG PO (15:48)
[2024-07-22] MEDS: IBUPROFEN 400 MG TABLET PO (15:48)
--- NOTE | 2024-07-22 17:34 | PC.NURSE ---
Returned from OR. VSS. Pt wants to leave to be able to go home. Instructed in items which must be met. She has voided x2, she has tolerated a small amt of food w/out problems or nausea. Has been up and amb in room w/out problems. Recieved acetaminophen and ibuprofen for pain. They were effective. Given discharge packet and reviewed. Rx has been esent. Questions answered. She met criteria to go home and she d/c to home with her roommate.
--- NOTE | 2024-08-10 01:10 | PC.NURSE ---
Late Entry: Zosyn 4.5mg infusion administered on 07/22/24 started at 0216 and ended at 0616.
== END 2024-07-22 16:25 | disposition home or self-care (01) ==
LOC: ED 07-22 01:39 → AC 07-22 01:56
PROVIDERS: Admitting Provider Surgery; Emergency Provider Emergency Medicine; Family Provider Family Medicine; PCP Family Medicine; Referring Provider Emergency Medicine; Visit Provider Surgery
PROC: 0FT44ZZ Resection of Gallbladder, Percutaneous Endoscopic Approach (ICD-10-PCS; CPT 47562; principal; 2024-07-22 10:00)
DX: K81.0 Acute cholecystitis (principal); F17.210 Nicotine dependence, cigarettes, uncomplicated; N83.201 Unspecified ovarian cyst, right side
CPT/HCPCS: 47562; 49322; 36415; 74177; 76705; 76830; 76856; 80053; 80305; 81003; 83690; 84703; 85025; 93005; 93010; 93975; 96374; 99223; 99284; G0378; J0131; J0330; J1100; J1885; J2250; J2405; J2543; J2704; J3010; J3490; Q9967